=== PATIENT | female | born 1995 | race African-American/Black ===

== ENCOUNTER 2023-07-20 00:36 | Emergency (ER) | payer MEDICAID ==
[2023-07-20 01:23] LABS: CORONAVIRUS COVID-19 NAA NEGATIVE (NEGATIVE); INFLUENZA A NAA NEGATIVE (NEGATIVE); INFLUENZA B NAA NEGATIVE (NEGATIVE); RESPIRATORY SYNCYTIAL VIR NAA NEGATIVE (NEGATIVE)
== END 2023-07-20 00:55 | disposition home or self-care (01) ==
LOC: MW.ED 00:36
DX: R05.9 Cough, unspecified (principal); Z20.822 Contact with and (suspected) exposure to COVID-19; Z88.6 Allergy status to analgesic agent; Z79.899 Other long term (current) drug therapy; Z88.5 Allergy status to narcotic agent
CPT/HCPCS: 0241U; 99283

== ENCOUNTER 2024-05-27 17:27 | Emergency (ER) | payer SELFPAY ==
[2024-05-27 18:26] LABS: CORONAVIRUS COVID-19 NAA NEGATIVE (NEGATIVE); INFLUENZA A NAA NEGATIVE (NEGATIVE); INFLUENZA B NAA NEGATIVE (NEGATIVE)
[2024-05-27] MEDS: Azithromycin 250 MG Tab PO ONE (18:37)
== END 2024-05-27 18:38 | disposition home or self-care (01) ==
LOC: MW.ED 17:27
DX: J06.9 Acute upper respiratory infection, unspecified (principal); J45.909 Unspecified asthma, uncomplicated; F17.210 Nicotine dependence, cigarettes, uncomplicated; Z88.5 Allergy status to narcotic agent; Z75.8 Other problems related to medical facilities and other health care
CPT/HCPCS: 0240U; 87651; 99284; A9270; 99283

== ENCOUNTER 2024-06-22 21:45 | Emergency (ER) | payer SELFPAY ==
[2024-06-22] MEDS: Amoxicillin/Clavulanate K 875-125 MG Tab PO ONE (22:44)
[2024-06-22] MEDS: Ketorolac 30 MG/ML SDV IM ONE (22:45)
[2024-06-22] MEDS: Dexamethasone 4 MG/ML SDV IM ONE (22:53)
== END 2024-06-22 23:05 | disposition home or self-care (01) ==
LOC: MW.ED 21:45
DX: K04.7 Periapical abscess without sinus (principal); J45.909 Unspecified asthma, uncomplicated; Z88.5 Allergy status to narcotic agent; Z79.2 Long term (current) use of antibiotics
CPT/HCPCS: 96372; 99282; A9270; J1100; J1885

== ENCOUNTER 2024-07-02 02:33 | Emergency (ER) | payer SELFPAY | END 2024-07-02 03:07 | disposition home or self-care (01) | LOC: MW.ED 02:33 | DX: K04.7 Periapical abscess without sinus (principal); J45.909 Unspecified asthma, uncomplicated; F17.210 Nicotine dependence, cigarettes, uncomplicated; Z88.8 Allergy status to other drugs, medicaments and biological substances | CPT/HCPCS: 99282 ==

== ENCOUNTER 2024-07-26 22:35 | Emergency (ER) | payer SELFPAY | END 2024-07-26 23:47 | disposition home or self-care (01) | LOC: MW.ED 22:35 | DX: U07.1 COVID-19 (principal); Z88.5 Allergy status to narcotic agent; Z75.8 Other problems related to medical facilities and other health care | CPT/HCPCS: 87428-QW; 99283 ==

== ENCOUNTER 2024-11-26 04:03 | Emergency (ER) | payer MEDICAID ==
[2024-11-26] MEDS: Acetaminophen 500 MG Tab PO ONE (04:51)
[2024-11-26] MEDS: Dexamethasone 4 MG Tab PO ONE (04:52)
[2024-11-26] MEDS: Orphenadrine 60 MG/2 ML Inj IM ONE (04:53)
[2024-11-26] MEDS: Ketorolac 30 MG/ML SDV IM ONE (04:53)
== END 2024-11-26 06:49 | disposition home or self-care (01) ==
LOC: MW.ED 04:03
DX: M62.838 Other muscle spasm (principal); M54.2 Cervicalgia; G44.209 Tension-type headache, unspecified, not intractable; J45.909 Unspecified asthma, uncomplicated; Z88.5 Allergy status to narcotic agent; Z79.899 Other long term (current) drug therapy
CPT/HCPCS: 70450; 72125; 96372; 99284; A9270; J1885; J2360; J8540